=== PATIENT | male | born 1940 | race Two or more races ===

== ENCOUNTER 2016-03-27 06:21 | Day surgery (SDC) | payer OTHER ==
[2016-03-20 16:30] VITALS: BMI 32.5
[2016-03-27] MEDS: FLURBIPROFEN 0.03% OPHTH SOLN 2.5 ML BOTTLE ONE ×5 (07:20→07:40)
[2016-03-27] MEDS: CYCLOPENTOLATE HCL 1% OPHTH SOLN 2 ML BOTTLE ONE ×5 (07:20→07:40)
[2016-03-27] MEDS ORDERED: BACITRACIN/POLYMYXIN OPH OINT 3.5 GM TUBE ONE (07:20)
[2016-03-27] MEDS: GENTAMICIN SULFATE 0.3% OPHTHALMIC (EYE DROPS) 5ML BOTTLE ONE ×5 (07:20→07:40)
[2016-03-27] MEDS: TROPICAMIDE 1% OPHTH SOLN 15 ML BOTTLE ONE ×5 (07:20→07:40)
[2016-03-27] MEDS: PHENYLEPHRINE 2.5% OPHTH SOLN 15 ML BOTTLE ONE ×5 (07:20→07:40)
[2016-03-27] MEDS ORDERED: TETRACAINE 0.5% OPHTH SOLN 2 ML BOTTLE ONE (07:21)
[2016-03-27] MEDS ORDERED: EPINEPHrine 1:1,000 1 MG/1 ML - 30ML VIAL (INJECTION) ONE (07:21)
[2016-03-27] MEDS ORDERED: LIDOCAINE HCL/PF 2% SDV 5ML VIAL ONE ×2 (07:21→07:23)
[2016-03-27] MEDS ORDERED: BUPIVACAINE HCL/PF 0.5% (5MG/ML) 10 ML VIAL ONE (07:21)
[2016-03-27] MEDS ORDERED: BETAXOLOL HCL 0.25% OPHTHALMIC 10 ML DROPSBTL ONE (07:21)
[2016-03-27] MEDS ORDERED: POVIDONE-IODINE 5% OPHTHALMIC PREP 30 ML SOLUTION ONE (07:21)
[2016-03-27] MEDS ORDERED: SUCCINYLCHOLINE CHLORIDE 200 MG/10 ML VIAL ONE (07:21)
[2016-03-27] MEDS ORDERED: PROPOFOL 20 ML ONE ×2 (07:21)
[2016-03-27] MEDS ORDERED: ePHEDrine SULFATE 50 MG/1 ML AMPULE ONE (07:21)
[2016-03-27] MEDS ORDERED: NEO/POLYMYX B SULF/DEXAMETH OPHTHALMIC 5ML BOTTLE ONE ×2 (07:22→07:27)
[2016-03-27] MEDS ORDERED: MIDAZOLAM HCL 2 MG/2 ML SINGLE DOSE VIAL ONE (07:22)
[2016-03-27] MEDS ORDERED: ACETYLCHOLINE 1:100 INTRA-OCUL 20 MG/2 ML KIT ONE (07:22)
[2016-03-27] MEDS ORDERED: CYCLOPENTOLATE HCL 1% OPHTH SOLN 2 ML BOTTLE OS SCH (08:00)
[2016-03-27] MEDS ORDERED: FLURBIPROFEN 0.03% OPHTH SOLN 2.5 ML BOTTLE OS SCH (08:00)
[2016-03-27] MEDS ORDERED: TROPICAMIDE 1% OPHTH SOLN 15 ML BOTTLE OS SCH (08:00)
[2016-03-27] MEDS ORDERED: PHENYLEPHRINE 2.5% OPHTH SOLN 15 ML BOTTLE OS SCH (08:00)
[2016-03-27] MEDS ORDERED: GENTAMICIN SULFATE 0.3% OPHTHALMIC (EYE DROPS) 5ML BOTTLE OS SCH (08:00)
[2016-03-27] MEDS ORDERED: ACETAMINOPHEN 325 MG TABLET (FP) PO PRN (09:08)
--- NOTE | 2016-03-27 11:10 | OP ---
DATE OF OPERATION: 03/27/2016 PREOPERATIVE DIAGNOSIS: Cataract, left eye. POSTOPERATIVE DIAGNOSIS: Cataract, left eye. PROCEDURE: Cataract extraction via phacoemulsification with insertion of posterior chamber lens implant, left eye. SURGEON: Home Gonsalez MD DIRECTOR OF INSTRUCTIONAL TECHNOLOGY: Beena Espinoza MD ANESTHESIA: Regional with sedation. COMPLICATIONS: None. SPECIMENS: None. ESTIMATED BLOOD LOSS: Less than 1 mL. PROCEDURE: The patient was identified in the holding area, after all risks, benefits and alternatives were explained, informed consent was obtained. The left eye was marked with a marking pen. The patient had entered the operating room on an eye stretcher. After a formal timeout was performed, a 3-mL injection of equal parts 1% lidocaine with epinephrine and 0.5% Marcaine was given around the left eye. The patient was then prepped and draped in the usual sterile fashion. An eyelid speculum was placed into the eyelid of the left eye. An inferotemporal paracentesis incision was created using a 15-degree blade. Viscoelastic was then injected into the anterior chamber. A 2.5-mm keratome blade was then used to make a superotemporal incision. A bent cystitome and Utrata forceps were then used to create a continuous curvilinear capsulorrhexis 360 degrees. Balanced salt solution was used on a cannula to hydrodissect the lens nucleus. Phacoemulsification was then introduced to dissemble and remove the nucleus in its entirety. Irrigation/aspiration was then used to remove any remaining cortical material from the eye. Viscoelastic was then injected to reform the capsular bag. An Case model SN60WF with a power of 17.5 diopters, serial number [id number], was inspected and found to be defect-free and injected into the capsular bag. Irrigation/aspiration was then used to remove any remaining viscoelastic from the eye. injections of Miochol and Miostat were then given. The pupil came down and was round. All wounds were hydrated with balanced salt solution and noted to be watertight. The lens was perfectly centered in the capsular bag. The eye had an adequate pressure. Topical antibiotic eye drops were applied to the left eye. The eyelid speculum was removed from the left eye and the left eye was then patched and shielded. The patient tolerated the procedure well and will follow up in the [facility] tomorrow morning at 9:00. HOME GONSALEZ M.D. [id number]
[2016-03-27 12:22] VITALS: BP 142/85; PULSE 83; TEMP 98.1
== END 2016-03-27 09:50 | disposition home or self-care (01) ==
LOC: FASU 06:21
PROVIDERS: ATTEND Ophthalmology
PROC: 08RK3JZ Replacement of Left Lens with Synthetic Substitute, Percutaneous Approach (ICD-10-PCS; principal; 2016-03-27 08:38)
DX: H26.8 Other specified cataract (principal)